=== PATIENT | female | born 1945 | race Caucasian/White ===

== ENCOUNTER 2018-04-18 08:23 | Inpatient (IN) | payer MEDICARE ==
[2018-04-18 09:56] LABS: BILIRUBIN,URINE NEGATIVE (NEG); CLARITY,URINE CLEAR; COLOR,URINE YELLOW; GLUCOSE,URINE NEGATIVE (NEG); NITRITE,URINE NEGATIVE (NEG); PROTEIN,URINE NEGATIVE (NEG-TRACE); UROBILINOGEN,URINE 0.2 mg/dL (0.2 mg/dL)
[2018-04-18 10:03] LABS: AMPHETAMINE/METHAMPHETAMINE NEG (NEG); BARBITURATES POS (NEG); BENZODIAZEPINES NEG (NEG); CANNABINOIDS NEG (NEG); COCAINE NEG (NEG); ETHANOL, URINE POS (NEG); METHADONE NEG (NEG); OPIATES NEG (NEG); PHENCYCLIDINE NEG (NEG)
[2018-04-18] MEDS: DIPHTH,PERTUSS(ACELL),TET TOX 0.5 ML DISP.SYRIN. VAX IM (10:09)
[2018-04-18 10:15] LABS: BACTERIA,URINE FEW /HPF (0-FEW); RBC,URINE OCC /HPF (0-2); SQUAMOUS EPITHELIAL CELL,UR FEW /LPF; WBC,URINE OCC /HPF (0-4)
[2018-04-18 10:18] LABS: ADD MAN DIFF? YES; BASO % 0 % (0-3); EOS % 0 % (0-3); HEMOGLOBIN 13.2 g/dL (12.0-15.5); LYMPH # 0.8 x10^3/uL (1.0-4.8); LYMPH % 7 % (24-48); MEAN CORPUSCULAR HEMOGLOBIN 29 pg (25-35); MEAN CORPUSCULAR HGB CONC 34 g/dL (31-37); MEAN CORPUSCULAR VOLUME 84 fL (79-100); MONO # 0.3 x10^3/uL (0.0-1.1); MONO % 3 % (0-9); NEUT # 10.1 x10^3uL (1.8-7.7); NEUT % 90 % (31-73); PLATELET COUNT 304 x10^3/uL (140-400); RED BLOOD COUNT 4.64 x10^6/uL (3.50-5.40); RED CELL DISTRIBUTION WIDTH 16.3 % (11.5-14.5); WHITE BLOOD COUNT 11.2 x10^3/uL (4.0-11.0)
[2018-04-18 10:29] LABS: ANION GAP 16 (6-14); BLOOD UREA NITROGEN 11 mg/dL (7-20); BUN/CREATININE RATIO 14 (6-20); CALCIUM 8.3 mg/dL (8.5-10.1); CARBON DIOXIDE 24 mmol/L (21-32); CHLORIDE 88 mmol/L (98-107); CREATININE 0.8 mg/dL (0.6-1.0); GFR 70.3; GLUCOSE 93 mg/dL (70-99); POTASSIUM 3.4 mmol/L (3.5-5.1); SODIUM 128 mmol/L (136-145)
[2018-04-18 10:30] LABS: AMMONIA 10 mcmol/L (11-34)
[2018-04-18 10:36] LABS: TROPONINI < 0.017 ng/mL (0.000-0.055)
[2018-04-18 10:42] LABS: ETHANOL 337 mg/dL (0-10)
[2018-04-18 10:42] LABS: ALBUMIN 3.7 g/dL (3.4-5.0); ALBUMIN/GLOBULIN RATIO 0.8 (1.0-1.7); ALK PHOS 139 U/L (46-116); ALT (SGPT) 14 U/L (14-59); AST (SGOT) 18 U/L (15-37); MAGNESIUM 1.7 mg/dL (1.8-2.4); TOTAL BILIRUBIN 0.2 mg/dL (0.2-1.0); TOTAL PROTEIN 8.1 g/dL (6.4-8.2)
[2018-04-18 10:44] LABS: NT-PRO BNP 516 pg/mL (0-124)
[2018-04-18 10:44] LABS: CKMB INDEX 1.1 % (0-4); CKMB MASS 0.9 ng/mL (0.0-3.6); CREATINE KINASE 85 U/L (26-192)
[2018-04-18 10:59] LABS: LACTIC ACID 5.8 mmol/L (0.4-2.0)
[2018-04-18 11:20] LABS: THYROID STIM HORMONE (TSH) 2.217 uIU/mL (0.358-3.74)
[2018-04-18] MEDS: IV NORMAL SALINE 1000ML BAG 1,000 ML IV ×3 (11:25→16:46)
[2018-04-18] MEDS: MULTIVIT INFUSN,ADULT 4,VIT K 10 ML, THIAMINE 100 MG, FOLIC ACID 1 MG in IV NORMAL SALI... IV (11:25)
[2018-04-18 11:36] LABS: % BANDS 1 % (0-9); % LYMPHS 6 % (24-48); % MONOS 2 % (0-10); % SEGS 91 % (35-66); PLT ESTIMATE ADEQUATE (ADEQUATE)
[2018-04-18] MEDS ORDERED: ACETAMINOPHEN 325 MG TABLET. PO (13:00)
[2018-04-18] MEDS: LIDOCAINE/EPI/TETRACAINE TOPICAL GEL 3 ML. TP (13:50)
[2018-04-18 15:08] LABS: LACTIC ACID 5.4 mmol/L (0.4-2.0)
[2018-04-18] MEDS ORDERED: SENNOSIDES 8.6 MG TABLET PO (15:30)
[2018-04-18] MEDS: HYDROcodone/APAP 7.5/325MG 1 TAB TABLET PO (16:45)
[2018-04-18] MEDS: POTASSIUM CHLORIDE 20 MEQ TABLET.ER. PO (16:45)
[2018-04-18] MEDS: GABAPENTIN 100 MG CAPSULE. PO ×2 (16:46→20:56)
[2018-04-18] MEDS: MAGNESIUM SULFATE 2GM 50 ML IV (16:47)
[2018-04-18 18:05] LABS: CREATINE KINASE 95 U/L (26-192)
[2018-04-18 18:26] LABS: LACTIC ACID 4.5 mmol/L (0.4-2.0)
[2018-04-18] MEDS: ONDANSETRON PF 4 MG/2 ML VIAL. IV (19:42)
[2018-04-18] MEDS: MONTELUKAST SODIUM 10 MG TABLET. PO (20:56)
[2018-04-18] MEDS: PRIMIDONE 50 MG TABLET PO (20:56)
[2018-04-18] MEDS: PROPRANOLOL 10 MG TABLET. PO ×2 (20:56→22:00)
[2018-04-18] MEDS: PROPRANOLOL 40 MG TABLET. PO (21:00)
[2018-04-18] MEDS: ACETAMINOPHEN 325 MG TABLET. PO (22:02)
[2018-04-19] MEDS: HYDROcodone/APAP 7.5/325MG 1 TAB TABLET PO ×2 (02:32→13:09)
[2018-04-19] MEDS: ONDANSETRON PF 4 MG/2 ML VIAL. IV ×3 (02:32→21:56)
[2018-04-19] MEDS: IV NORMAL SALINE 1000ML BAG 1,000 ML IV ×2 (02:36→14:59)
[2018-04-19] MEDS: PANTOPRAZOLE 40 MG TABLET.DR. PO (06:35)
[2018-04-19] MEDS: LEVOTHYROXINE 50 MCG TABLET PO (06:35)
[2018-04-19] MEDS: POTASSIUM CHLORIDE 10 MEQ TABLET.ER. PO (08:00)
[2018-04-19 08:52] LABS: ADD MAN DIFF? NO
[2018-04-19] MEDS: PROPRANOLOL 40 MG TABLET. PO ×2 (09:00→21:23)
[2018-04-19 09:03] LABS: BASO % 1 % (0-3); EOS % 0 % (0-3); HEMATOCRIT 32.5 % (36.0-47.0); HEMOGLOBIN 11.4 g/dL (12.0-15.5); LYMPH # 0.5 x10^3/uL (1.0-4.8); LYMPH % 12 % (24-48); MEAN CORPUSCULAR HEMOGLOBIN 30 pg (25-35); MEAN CORPUSCULAR HGB CONC 35 g/dL (31-37); MEAN CORPUSCULAR VOLUME 85 fL (79-100); MONO # 0.4 x10^3/uL (0.0-1.1); MONO % 10 % (0-9); NEUT # 3.3 x10^3uL (1.8-7.7); NEUT % 77 % (31-73); PLATELET COUNT 182 x10^3/uL (140-400); RED BLOOD COUNT 3.85 x10^6/uL (3.50-5.40); RED CELL DISTRIBUTION WIDTH 16.1 % (11.5-14.5); WHITE BLOOD COUNT 4.3 x10^3/uL (4.0-11.0)
[2018-04-19 09:07] LABS: ANION GAP 7 (6-14); BLOOD UREA NITROGEN 8 mg/dL (7-20); CALCIUM 7.7 mg/dL (8.5-10.1); CARBON DIOXIDE 27 mmol/L (21-32); CHLORIDE 95 mmol/L (98-107); CREATININE 0.7 mg/dL (0.6-1.0); GLUCOSE 93 mg/dL (70-99); POTASSIUM 3.7 mmol/L (3.5-5.1); SODIUM 129 mmol/L (136-145)
[2018-04-19 09:29] LABS: LACTIC ACID 0.6 mmol/L (0.4-2.0)
[2018-04-19] MEDS: PRIMIDONE 50 MG TABLET PO ×2 (09:30→21:22)
[2018-04-19] MEDS: POLYETHYLENE GLYCOL 3350 17 GM PACKET. PO (09:31)
[2018-04-19] MEDS: CITALOPRAM 20 MG TABLET. PO (09:31)
[2018-04-19] MEDS: THIAMINE 100 MG TABLET. PO (09:31)
[2018-04-19] MEDS: GABAPENTIN 100 MG CAPSULE. PO ×3 (09:31→21:22)
[2018-04-19] MEDS: CHOLECALCIFEROL (VITAMIN D3) 1,000 UNIT TABLET PO (09:31)
[2018-04-19] MEDS: PROPRANOLOL 10 MG TABLET. PO (09:31)
[2018-04-19 10:02] LABS: URIC ACID 4.4 mg/dL (2.6-6.0)
[2018-04-19] MEDS: BUPIVACAINE MPF 0.25% 10 ML VIAL. IJ (10:15)
[2018-04-19] MEDS: methylPREDNISolone ACETATE 40 MG/ML VIAL. INJ ×2 (10:15)
[2018-04-19] MEDS: cloNIDine HCL 0.1 MG TABLET PO (16:29)
[2018-04-19] MEDS: MONTELUKAST SODIUM 10 MG TABLET. PO (21:22)
[2018-04-20] MEDS: HYDROcodone/APAP 7.5/325MG 1 TAB TABLET PO ×2 (00:28→21:01)
[2018-04-20] MEDS: IV NORMAL SALINE 1000ML BAG 1,000 ML IV ×3 (00:29→21:46)
[2018-04-20 02:18] LABS: SODIUM, URINE 170 mmol/L (Not Estab.)
[2018-04-20] MEDS: LEVOTHYROXINE 50 MCG TABLET PO (07:01)
[2018-04-20 07:37] LABS: ANION GAP 7 (6-14); BLOOD UREA NITROGEN 7 mg/dL (7-20); CALCIUM 8.7 mg/dL (8.5-10.1); CARBON DIOXIDE 26 mmol/L (21-32); CHLORIDE 97 mmol/L (98-107); CREATININE 0.7 mg/dL (0.6-1.0); GLUCOSE 85 mg/dL (70-99); POTASSIUM 3.7 mmol/L (3.5-5.1); SODIUM 130 mmol/L (136-145)
[2018-04-20] MEDS: PANTOPRAZOLE 40 MG TABLET.DR. PO (07:54)
[2018-04-20] MEDS: POTASSIUM CHLORIDE 10 MEQ TABLET.ER. PO (07:55)
[2018-04-20] MEDS: ONDANSETRON PF 4 MG/2 ML VIAL. IV (08:20)
[2018-04-20] MEDS: GABAPENTIN 100 MG CAPSULE. PO ×3 (08:57→21:02)
[2018-04-20] MEDS: PROPRANOLOL 40 MG TABLET. PO ×2 (08:58→21:00)
[2018-04-20] MEDS: CHOLECALCIFEROL (VITAMIN D3) 1,000 UNIT TABLET PO (08:58)
[2018-04-20] MEDS: THIAMINE 100 MG TABLET. PO (08:58)
[2018-04-20] MEDS: CITALOPRAM 20 MG TABLET. PO (08:59)
[2018-04-20] MEDS: POLYETHYLENE GLYCOL 3350 17 GM PACKET. PO (09:00)
[2018-04-20] MEDS: DICLOFENAC SODIUM 1% TOPICAL GEL 100GM TUBE. TP ×8 (09:09→21:03)
[2018-04-20] MEDS: PRIMIDONE 50 MG TABLET PO ×2 (09:09→21:02)
[2018-04-20] MEDS: ACETAMINOPHEN 500 MG TABLET PO ×3 (11:00→21:02)
[2018-04-20] MEDS: MONTELUKAST SODIUM 10 MG TABLET. PO (21:02)
[2018-04-20] MEDS: hydrALAZINE 20 MG/ML VIAL. IVP (23:04)
[2018-04-21] MEDS: hydrALAZINE 20 MG/ML VIAL. IVP (03:20)
[2018-04-21] MEDS: LEVOTHYROXINE 50 MCG TABLET PO (06:21)
[2018-04-21] MEDS: IV NORMAL SALINE 1000ML BAG 1,000 ML IV (06:22)
[2018-04-21] MEDS: ONDANSETRON PF 4 MG/2 ML VIAL. IV (07:50)
[2018-04-21] MEDS: POTASSIUM CHLORIDE 10 MEQ TABLET.ER. PO (08:50)
[2018-04-21] MEDS: CHOLECALCIFEROL (VITAMIN D3) 1,000 UNIT TABLET PO (08:51)
[2018-04-21] MEDS: GABAPENTIN 100 MG CAPSULE. PO ×3 (08:51→21:17)
[2018-04-21] MEDS: cloNIDine HCL 0.1 MG TABLET PO ×3 (08:51→21:18)
[2018-04-21] MEDS: PROPRANOLOL 40 MG TABLET. PO ×2 (08:51→21:16)
[2018-04-21] MEDS: PANTOPRAZOLE 40 MG TABLET.DR. PO (08:51)
[2018-04-21] MEDS: CITALOPRAM 20 MG TABLET. PO (08:51)
[2018-04-21] MEDS: PRIMIDONE 50 MG TABLET PO ×2 (08:52→21:17)
[2018-04-21] MEDS: DICLOFENAC SODIUM 1% TOPICAL GEL 100GM TUBE. TP ×8 (08:52→21:00)
[2018-04-21] MEDS: POLYETHYLENE GLYCOL 3350 17 GM PACKET. PO (08:53)
[2018-04-21] MEDS: THIAMINE 100 MG TABLET. PO (08:53)
[2018-04-21] MEDS: ACETAMINOPHEN 500 MG TABLET PO ×3 (08:54→21:00)
[2018-04-21] MEDS ORDERED: MAGNESIUM HYDROXIDE 2,400 MG/30 ML ORAL.SUSP. PO (09:00)
[2018-04-21] MEDS ORDERED: MAG HYDROX/ALUMINUM HYD/SIMETH 30 ML ORAL.SUSP PO (09:00)
[2018-04-21] MEDS: BISACODYL 5 MG TABLET.DR. PO (10:00)
[2018-04-21 10:22] LABS: ADD MAN DIFF? NO
[2018-04-21 10:35] LABS: BASO % 1 % (0-3); EOS # 0.1 x10^3/uL (0.0-0.7); EOS % 1 % (0-3); HEMATOCRIT 32.2 % (36.0-47.0); HEMOGLOBIN 10.9 g/dL (12.0-15.5); LYMPH % 18 % (24-48); MEAN CORPUSCULAR HEMOGLOBIN 29 pg (25-35); MEAN CORPUSCULAR HGB CONC 34 g/dL (31-37); MEAN CORPUSCULAR VOLUME 85 fL (79-100); MONO # 0.4 x10^3/uL (0.0-1.1); MONO % 8 % (0-9); NEUT # 3.8 x10^3uL (1.8-7.7); NEUT % 72 % (31-73); PLATELET COUNT 193 x10^3/uL (140-400); RED BLOOD COUNT 3.78 x10^6/uL (3.50-5.40); RED CELL DISTRIBUTION WIDTH 16.1 % (11.5-14.5); WHITE BLOOD COUNT 5.3 x10^3/uL (4.0-11.0)
[2018-04-21 10:37] LABS: ANION GAP 5 (6-14); BLOOD UREA NITROGEN 7 mg/dL (7-20); CALCIUM 8.7 mg/dL (8.5-10.1); CARBON DIOXIDE 28 mmol/L (21-32); CHLORIDE 97 mmol/L (98-107); CREATININE 0.6 mg/dL (0.6-1.0); GLUCOSE 97 mg/dL (70-99); POTASSIUM 3.4 mmol/L (3.5-5.1); SODIUM 130 mmol/L (136-145)
[2018-04-21 13:25] LABS: URINE OSMOLALITY 161 mOsmol/kg (.)
[2018-04-21] MEDS: HYDROcodone/APAP 7.5/325MG 1 TAB TABLET PO (16:36)
[2018-04-21] MEDS: MONTELUKAST SODIUM 10 MG TABLET. PO (21:17)
[2018-04-22 04:42] LABS: ADD MAN DIFF? NO
[2018-04-22] MEDS: HYDROcodone/APAP 7.5/325MG 1 TAB TABLET PO ×2 (04:51→16:45)
[2018-04-22] MEDS: ONDANSETRON PF 4 MG/2 ML VIAL. IV ×2 (04:51→08:42)
[2018-04-22 05:15] LABS: BASO % 1 % (0-3); EOS # 0.1 x10^3/uL (0.0-0.7); EOS % 2 % (0-3); HEMATOCRIT 29.5 % (36.0-47.0); HEMOGLOBIN 10.1 g/dL (12.0-15.5); LYMPH # 1.2 x10^3/uL (1.0-4.8); LYMPH % 25 % (24-48); MEAN CORPUSCULAR HEMOGLOBIN 29 pg (25-35); MEAN CORPUSCULAR HGB CONC 34 g/dL (31-37); MEAN CORPUSCULAR VOLUME 86 fL (79-100); MONO # 0.5 x10^3/uL (0.0-1.1); MONO % 9 % (0-9); NEUT # 3.2 x10^3uL (1.8-7.7); NEUT % 64 % (31-73); PLATELET COUNT 185 x10^3/uL (140-400); RED BLOOD COUNT 3.44 x10^6/uL (3.50-5.40); RED CELL DISTRIBUTION WIDTH 16.2 % (11.5-14.5); WHITE BLOOD COUNT 5.1 x10^3/uL (4.0-11.0)
[2018-04-22 05:37] LABS: ANION GAP 7 (6-14); BLOOD UREA NITROGEN 15 mg/dL (7-20); CALCIUM 8.3 mg/dL (8.5-10.1); CARBON DIOXIDE 25 mmol/L (21-32); CHLORIDE 101 mmol/L (98-107); CREATININE 0.8 mg/dL (0.6-1.0); GFR 70.3; GLUCOSE 118 mg/dL (70-99); POTASSIUM 3.7 mmol/L (3.5-5.1); SODIUM 133 mmol/L (136-145)
[2018-04-22] MEDS: LEVOTHYROXINE 50 MCG TABLET PO (05:41)
[2018-04-22] MEDS: cloNIDine HCL 0.1 MG TABLET PO ×3 (05:42→21:15)
[2018-04-22] MEDS: ACETAMINOPHEN 500 MG TABLET PO ×3 (08:32→21:22)
[2018-04-22] MEDS: POLYETHYLENE GLYCOL 3350 17 GM PACKET. PO ×2 (08:39→09:00)
[2018-04-22] MEDS: THIAMINE 100 MG TABLET. PO (08:40)
[2018-04-22] MEDS: POTASSIUM CHLORIDE 10 MEQ TABLET.ER. PO (08:40)
[2018-04-22] MEDS: GABAPENTIN 100 MG CAPSULE. PO ×3 (08:41→21:15)
[2018-04-22] MEDS: PROPRANOLOL 40 MG TABLET. PO ×2 (08:41→21:15)
[2018-04-22] MEDS: PRIMIDONE 50 MG TABLET PO ×2 (08:41→21:16)
[2018-04-22] MEDS: CITALOPRAM 20 MG TABLET. PO (08:42)
[2018-04-22] MEDS: BISACODYL 5 MG TABLET.DR. PO (08:42)
[2018-04-22] MEDS: CHOLECALCIFEROL (VITAMIN D3) 1,000 UNIT TABLET PO (08:43)
[2018-04-22] MEDS: PANTOPRAZOLE 40 MG TABLET.DR. PO (08:43)
[2018-04-22] MEDS: DICLOFENAC SODIUM 1% TOPICAL GEL 100GM TUBE. TP ×8 (12:30→21:16)
[2018-04-22] MEDS: MONTELUKAST SODIUM 10 MG TABLET. PO (21:14)
[2018-04-23 04:04] LABS: ADD MAN DIFF? NO
[2018-04-23 04:17] LABS: BASO % 1 % (0-3); EOS # 0.1 x10^3/uL (0.0-0.7); EOS % 3 % (0-3); HEMATOCRIT 30.4 % (36.0-47.0); HEMOGLOBIN 10.2 g/dL (12.0-15.5); LYMPH # 1.3 x10^3/uL (1.0-4.8); LYMPH % 25 % (24-48); MEAN CORPUSCULAR HEMOGLOBIN 29 pg (25-35); MEAN CORPUSCULAR HGB CONC 34 g/dL (31-37); MEAN CORPUSCULAR VOLUME 86 fL (79-100); MONO # 0.4 x10^3/uL (0.0-1.1); MONO % 9 % (0-9); NEUT # 3.1 x10^3uL (1.8-7.7); NEUT % 62 % (31-73); PLATELET COUNT 174 x10^3/uL (140-400); RED BLOOD COUNT 3.52 x10^6/uL (3.50-5.40); RED CELL DISTRIBUTION WIDTH 16.1 % (11.5-14.5)
[2018-04-23] MEDS: LEVOTHYROXINE 50 MCG TABLET PO (05:09)
[2018-04-23] MEDS: HYDROcodone/APAP 7.5/325MG 1 TAB TABLET PO ×3 (05:09→19:07)
[2018-04-23] MEDS: PANTOPRAZOLE 40 MG TABLET.DR. PO (05:09)
[2018-04-23] MEDS: cloNIDine HCL 0.1 MG TABLET PO ×3 (05:10→21:32)
[2018-04-23 05:16] LABS: ANION GAP 6 (6-14); BLOOD UREA NITROGEN 11 mg/dL (7-20); CALCIUM 8.7 mg/dL (8.5-10.1); CARBON DIOXIDE 27 mmol/L (21-32); CHLORIDE 100 mmol/L (98-107); CREATININE 0.7 mg/dL (0.6-1.0); GLUCOSE 110 mg/dL (70-99); POTASSIUM 3.8 mmol/L (3.5-5.1); SODIUM 133 mmol/L (136-145)
[2018-04-23] MEDS: DICLOFENAC SODIUM 1% TOPICAL GEL 100GM TUBE. TP ×8 (08:41→21:35)
[2018-04-23] MEDS: hydrALAZINE 20 MG/ML VIAL. IVP ×2 (08:42→20:12)
[2018-04-23] MEDS: GABAPENTIN 100 MG CAPSULE. PO ×3 (08:42→21:32)
[2018-04-23] MEDS: PRIMIDONE 50 MG TABLET PO ×2 (08:42→21:32)
[2018-04-23] MEDS: ACETAMINOPHEN 500 MG TABLET PO (08:42)
[2018-04-23] MEDS: POTASSIUM CHLORIDE 10 MEQ TABLET.ER. PO (08:43)
[2018-04-23] MEDS: CITALOPRAM 20 MG TABLET. PO (08:43)
[2018-04-23] MEDS: PROPRANOLOL 40 MG TABLET. PO ×2 (08:44→21:33)
[2018-04-23] MEDS: BISACODYL 5 MG TABLET.DR. PO (08:45)
[2018-04-23] MEDS: CHOLECALCIFEROL (VITAMIN D3) 1,000 UNIT TABLET PO (08:45)
[2018-04-23] MEDS: THIAMINE 100 MG TABLET. PO (08:45)
[2018-04-23] MEDS: POLYETHYLENE GLYCOL 3350 17 GM PACKET. PO (09:00)
[2018-04-23] MEDS: ONDANSETRON PF 4 MG/2 ML VIAL. IV ×3 (09:55→23:11)
[2018-04-23] MEDS: MONTELUKAST SODIUM 10 MG TABLET. PO (21:31)
[2018-04-24] MEDS: HYDROcodone/APAP 7.5/325MG 1 TAB TABLET PO ×3 (02:38→14:45)
[2018-04-24 04:43] LABS: ADD MAN DIFF? NO
[2018-04-24 05:16] LABS: BASO % 1 % (0-3); EOS # 0.2 x10^3/uL (0.0-0.7); EOS % 4 % (0-3); HEMATOCRIT 30.7 % (36.0-47.0); HEMOGLOBIN 10.4 g/dL (12.0-15.5); LYMPH # 1.2 x10^3/uL (1.0-4.8); LYMPH % 27 % (24-48); MEAN CORPUSCULAR HEMOGLOBIN 29 pg (25-35); MEAN CORPUSCULAR HGB CONC 34 g/dL (31-37); MEAN CORPUSCULAR VOLUME 86 fL (79-100); MONO # 0.5 x10^3/uL (0.0-1.1); MONO % 10 % (0-9); NEUT # 2.6 x10^3uL (1.8-7.7); NEUT % 58 % (31-73); PLATELET COUNT 181 x10^3/uL (140-400); RED BLOOD COUNT 3.58 x10^6/uL (3.50-5.40); RED CELL DISTRIBUTION WIDTH 16.2 % (11.5-14.5); WHITE BLOOD COUNT 4.6 x10^3/uL (4.0-11.0)
[2018-04-24 05:29] LABS: ANION GAP 8 (6-14); BLOOD UREA NITROGEN 10 mg/dL (7-20); CALCIUM 8.4 mg/dL (8.5-10.1); CARBON DIOXIDE 27 mmol/L (21-32); CHLORIDE 97 mmol/L (98-107); CREATININE 0.7 mg/dL (0.6-1.0); GLUCOSE 95 mg/dL (70-99); POTASSIUM 3.7 mmol/L (3.5-5.1); SODIUM 132 mmol/L (136-145)
[2018-04-24] MEDS: LEVOTHYROXINE 50 MCG TABLET PO (06:01)
[2018-04-24] MEDS: cloNIDine HCL 0.1 MG TABLET PO ×3 (06:03→20:42)
[2018-04-24] MEDS: POTASSIUM CHLORIDE 10 MEQ TABLET.ER. PO (08:36)
[2018-04-24] MEDS: GABAPENTIN 100 MG CAPSULE. PO ×3 (08:36→20:41)
[2018-04-24] MEDS: CHOLECALCIFEROL (VITAMIN D3) 1,000 UNIT TABLET PO (08:36)
[2018-04-24] MEDS: THIAMINE 100 MG TABLET. PO (08:36)
[2018-04-24] MEDS: PRIMIDONE 50 MG TABLET PO ×2 (08:36→20:41)
[2018-04-24] MEDS: PANTOPRAZOLE 40 MG TABLET.DR. PO (08:37)
[2018-04-24] MEDS: DICLOFENAC SODIUM 1% TOPICAL GEL 100GM TUBE. TP ×8 (08:37→20:43)
[2018-04-24] MEDS: CITALOPRAM 20 MG TABLET. PO (08:37)
[2018-04-24] MEDS: PROPRANOLOL 40 MG TABLET. PO ×2 (08:37→20:41)
[2018-04-24] MEDS: BISACODYL 5 MG TABLET.DR. PO (09:00)
[2018-04-24] MEDS: POLYETHYLENE GLYCOL 3350 17 GM PACKET. PO (09:00)
[2018-04-24] MEDS: ACETAMINOPHEN 325 MG TABLET. PO ×2 (19:26→23:46)
[2018-04-24] MEDS: LORazepam 0.5 MG TABLET PO (20:40)
[2018-04-24] MEDS: MONTELUKAST SODIUM 10 MG TABLET. PO (20:41)
[2018-04-25] MEDS: HYDROcodone/APAP 7.5/325MG 1 TAB TABLET PO ×2 (02:17→14:38)
[2018-04-25] MEDS: ACETAMINOPHEN 325 MG TABLET. PO ×2 (05:36→20:48)
[2018-04-25] MEDS: LEVOTHYROXINE 50 MCG TABLET PO (05:36)
[2018-04-25] MEDS: PANTOPRAZOLE 40 MG TABLET.DR. PO (05:36)
[2018-04-25] MEDS: POTASSIUM CHLORIDE 10 MEQ TABLET.ER. PO (08:08)
[2018-04-25 09:28] LABS: ADD MAN DIFF? NO
[2018-04-25] MEDS: LORazepam 0.5 MG TABLET PO ×2 (09:31→20:48)
[2018-04-25] MEDS: ONDANSETRON PF 4 MG/2 ML VIAL. IV (09:31)
[2018-04-25 09:34] LABS: BASO % 1 % (0-3); EOS # 0.2 x10^3/uL (0.0-0.7); EOS % 4 % (0-3); HEMATOCRIT 32.5 % (36.0-47.0); HEMOGLOBIN 10.9 g/dL (12.0-15.5); LYMPH # 1.1 x10^3/uL (1.0-4.8); LYMPH % 23 % (24-48); MEAN CORPUSCULAR HEMOGLOBIN 29 pg (25-35); MEAN CORPUSCULAR HGB CONC 34 g/dL (31-37); MEAN CORPUSCULAR VOLUME 86 fL (79-100); MONO # 0.4 x10^3/uL (0.0-1.1); MONO % 8 % (0-9); NEUT # 3.2 x10^3uL (1.8-7.7); NEUT % 65 % (31-73); PLATELET COUNT 179 x10^3/uL (140-400); RED BLOOD COUNT 3.77 x10^6/uL (3.50-5.40); RED CELL DISTRIBUTION WIDTH 16.5 % (11.5-14.5)
[2018-04-25] MEDS: PROPRANOLOL 40 MG TABLET. PO ×2 (09:34→20:49)
[2018-04-25] MEDS: PRIMIDONE 50 MG TABLET PO ×2 (09:35→20:50)
[2018-04-25] MEDS: GABAPENTIN 100 MG CAPSULE. PO ×3 (09:35→20:49)
[2018-04-25] MEDS: BISACODYL 5 MG TABLET.DR. PO (09:35)
[2018-04-25] MEDS: THIAMINE 100 MG TABLET. PO (09:35)
[2018-04-25] MEDS: CITALOPRAM 20 MG TABLET. PO (09:35)
[2018-04-25] MEDS: CHOLECALCIFEROL (VITAMIN D3) 1,000 UNIT TABLET PO (09:35)
[2018-04-25] MEDS: POLYETHYLENE GLYCOL 3350 17 GM PACKET. PO ×2 (09:36→09:39)
[2018-04-25] MEDS: cloNIDine HCL 0.1 MG TABLET PO ×2 (09:36→20:49)
[2018-04-25] MEDS: DICLOFENAC SODIUM 1% TOPICAL GEL 100GM TUBE. TP ×8 (09:37→20:48)
[2018-04-25 10:03] LABS: ANION GAP 7 (6-14); BLOOD UREA NITROGEN 11 mg/dL (7-20); CARBON DIOXIDE 28 mmol/L (21-32); CHLORIDE 98 mmol/L (98-107); CREATININE 0.8 mg/dL (0.6-1.0); GFR 70.3; GLUCOSE 111 mg/dL (70-99); POTASSIUM 3.9 mmol/L (3.5-5.1); SODIUM 133 mmol/L (136-145)
[2018-04-25 10:10] LABS: NT-PRO BNP 848 pg/mL (0-124)
[2018-04-25 10:15] LABS: TROPONINI < 0.017 ng/mL (0.000-0.055)
[2018-04-25] MEDS: MONTELUKAST SODIUM 10 MG TABLET. PO (20:49)
[2018-04-26] MEDS: HYDROcodone/APAP 7.5/325MG 1 TAB TABLET PO ×3 (03:21→13:34)
[2018-04-26] MEDS: LEVOTHYROXINE 50 MCG TABLET PO (06:32)
[2018-04-26] MEDS: POTASSIUM CHLORIDE 10 MEQ TABLET.ER. PO (07:53)
[2018-04-26] MEDS: PANTOPRAZOLE 40 MG TABLET.DR. PO (07:53)
[2018-04-26 08:00] LABS: POC GLUCOSE 84 mg/dL (70-99)
[2018-04-26] MEDS: BISACODYL 5 MG TABLET.DR. PO (09:00)
[2018-04-26] MEDS: CITALOPRAM 20 MG TABLET. PO (09:51)
[2018-04-26] MEDS: GABAPENTIN 100 MG CAPSULE. PO (09:52)
[2018-04-26] MEDS: PRIMIDONE 50 MG TABLET PO (09:52)
[2018-04-26] MEDS: cloNIDine HCL 0.1 MG TABLET PO (09:52)
[2018-04-26] MEDS: THIAMINE 100 MG TABLET. PO (09:53)
[2018-04-26] MEDS: CHOLECALCIFEROL (VITAMIN D3) 1,000 UNIT TABLET PO (09:53)
[2018-04-26] MEDS: PROPRANOLOL 40 MG TABLET. PO (09:53)
[2018-04-26] MEDS: DICLOFENAC SODIUM 1% TOPICAL GEL 100GM TUBE. TP ×2 (10:00→10:01)
== END 2018-04-26 13:30 | DRG 640 ==
LOC: ER 08:23 → 4 NORTH 11:49
PROC: 3E0233Z Introduction of Anti-inflammatory into Muscle, Percutaneous Approach (ICD-10-PCS; principal; 2018-04-19)
PROC: 3E023BZ Introduction of Anesthetic Agent into Muscle, Percutaneous Approach (ICD-10-PCS; 2018-04-19)
PROC: 0HBRXZZ Excision of Toe Nail, External Approach (ICD-10-PCS; 2018-04-22)
PROC: 0HBRXZZ Excision of Toe Nail, External Approach (ICD-10-PCS; 2018-04-22)
PROC: 0HBRXZZ Excision of Toe Nail, External Approach (ICD-10-PCS; 2018-04-22)
PROC: 0HBRXZZ Excision of Toe Nail, External Approach (ICD-10-PCS; 2018-04-22)
PROC: 0HBRXZZ Excision of Toe Nail, External Approach (ICD-10-PCS; 2018-04-22)
PROC: 0HBRXZZ Excision of Toe Nail, External Approach (ICD-10-PCS; 2018-04-22)
PROC: 0HBRXZZ Excision of Toe Nail, External Approach (ICD-10-PCS; 2018-04-22)
PROC: 0HBRXZZ Excision of Toe Nail, External Approach (ICD-10-PCS; 2018-04-22)
PROC: 0HBRXZZ Excision of Toe Nail, External Approach (ICD-10-PCS; 2018-04-22)
DX: E87.1 Hypo-osmolality and hyponatremia (principal); G93.41 Metabolic encephalopathy; I50.32 Chronic diastolic (congestive) heart failure; I13.0 Hypertensive heart and chronic kidney disease with heart failure and stage 1 through stage 4 chronic kidney disease, or unspecified chronic kidney disease; F33.2 Major depressive disorder, recurrent severe without psychotic features; E87.2 Acidosis; B35.1 Tinea unguium; Z96.659 Presence of unspecified artificial knee joint; Z96.642 Presence of left artificial hip joint; Z90.710 Acquired absence of both cervix and uterus; N18.2 Chronic kidney disease, stage 2 (mild); E78.00 Pure hypercholesterolemia, unspecified; M19.90 Unspecified osteoarthritis, unspecified site; N28.1 Cyst of kidney, acquired; I25.10 Atherosclerotic heart disease of native coronary artery without angina pectoris; E78.5 Hyperlipidemia, unspecified; Z86.718 Personal history of other venous thrombosis and embolism; J44.9 Chronic obstructive pulmonary disease, unspecified; Z87.11 Personal history of peptic ulcer disease; K21.9 Gastro-esophageal reflux disease without esophagitis; K57.90 Diverticulosis of intestine, part unspecified, without perforation or abscess without bleeding; F41.9 Anxiety disorder, unspecified; M17.0 Bilateral primary osteoarthritis of knee; G89.29 Other chronic pain; M54.5 Low back pain; E03.9 Hypothyroidism, unspecified; Z82.5 Family history of asthma and other chronic lower respiratory diseases; Z82.49 Family history of ischemic heart disease and other diseases of the circulatory system; Z60.2 Problems related to living alone; D63.1 Anemia in chronic kidney disease; G25.81 Restless legs syndrome; S43.401A Unspecified sprain of right shoulder joint, initial encounter; M51.36 Other intervertebral disc degeneration, lumbar region; L85.9 Epidermal thickening, unspecified; K64.8 Other hemorrhoids; E66.9 Obesity, unspecified; G62.9 Polyneuropathy, unspecified; M47.9 Spondylosis, unspecified; S01.81XA Laceration without foreign body of other part of head, initial encounter; M47.812 Spondylosis without myelopathy or radiculopathy, cervical region; W18.39XA Other fall on same level, initial encounter; Y93.89 Activity, other specified; Y92.89 Other specified places as the place of occurrence of the external cause; Y99.8 Other external cause status
CPT/HCPCS: 12014; 36415; 51701; 70450; 70486; 71045; 72125; 72128; 72131; 73030; 73562; 73630; 76770; 80048; 80053; 80307; 81001; 82140; 82436; 82533; 82550; 82553; 82962; 83605; 83735; 83880; 83930; 83935; 84133; 84300; 84443; 84484; 84550; 85007; 85025; 90471; 90715; 93005; 96365; 96375; 97116-GP; 97162-GP; 97166-GO; 97530-GO; 97530-GP; 99285; 99285-25; G0480; J0360; J2060; J2405; J3475; J7030